=== PATIENT | female | born 1975 | race Caucasian/White ===

== ENCOUNTER → 2016-11-18 | Outpatient (CLI) | payer BC ==
[~2016-11-18] MED LIST: ACETCAP13 PO; CALC-51 PO; CHOL100010 PO; FOLATAB PO; GLUT500C PO; HYD10 PO; HYDR5TAB57 PO; HYDROCODONE HOMATROPINE PO; LEVO25TA PO; MAGNESIUM PO; MILK140C PO; MISCCAP80 PO; OREGCAP PO; POTA10TA32 PO; PYRI100T4 PO
[2016-11-18 11:32] LABS: THYROID STIMULATING HORMONE 2.81 uIu/ml (0.300-4.500)
--- NOTE | 2016-11-21 09:46 | CODING QUERY NO DIAGNOSIS ---
TREATMENT RENDERED WITHOUT A DIAGNOSIS To promote full compliance with coding requirements relating to patient care, physician participation is requested in all cases of greige mender uncertainty. Please assist us with providing a diagnosis/symptom for the test(s) below: A diagnosis/symptom was not documented on your Order. A valid diagnosis/symptom is required to bill all insurances. Please remember that we are unable to code a diagnosis of rule out, probable, possible, questionable, or suspected. Tests that require a diagnosis from 11/18/16:: * TSH DIAGNOSIS: * FREE T4 DIAGNOSIS: Provider Signature: Date: Thank you Dahiana Lynch [employer] Once completed, please kindly fax back to [phone] For questions please call [phone]
== END ==
LOC: C.LAB 09:33
PROVIDERS: ATTEND Family Medicine
DX: E03.9 Hypothyroidism, unspecified (principal)

== ENCOUNTER → 2016-11-25 | Outpatient (CLI) | payer BC | END | disposition home or self-care (01) | LOC: C.LAB 09:51 | PROVIDERS: ATTEND Psychiatry & Neurology Neurology | DX: R41.89 Other symptoms and signs involving cognitive functions and awareness (principal) ==

== ENCOUNTER → 2016-11-28 | Outpatient (CLI) | payer BC ==
[~2016-11-28] MED LIST changes: +GADAVIST IV PRN
--- NOTE | 2016-11-28 14:49 | DIAGNOSTIC IMAGING REPORT ---
MRI OF THE BRAIN WITHOUT AND WITH IV CONTRAST CLINICAL HISTORY: R41.89 Cognitive [id number] mental status change COMPARISON STUDY: No previous studies for comparison. TECHNIQUE: Utilizing a 1.5 Ambika magnet and dedicated coil, multiplanar, multiecho imaging of the brain was performed pre and postcontrast administration. IV administration of 4.5 mL of Gadavist contrast was uneventful. FINDINGS: Diffusion-weighted images are considered negative for an acute ischemic insult. Signal characteristics the cerebellar as well as cerebral hemispheres are unremarkable.. No evidence for abnormal postcontrast enhancement. IMPRESSION: Normal study. Electronically signed by: Hilario Valencia M.D. 11/28/2016 2:48 PM Dictated Date/Time: 11/28/2016 2:45 PM
== END | disposition home or self-care (01) ==
LOC: C.MRIBC 13:43
PROVIDERS: ATTEND Psychiatry & Neurology Neurology
DX: R41.89 Other symptoms and signs involving cognitive functions and awareness (principal)

== ENCOUNTER → 2016-12-27 | Outpatient (CLI) | payer BC ==
[~2016-12-27] MED LIST changes: -GADAVIST IV PRN
--- NOTE | 2016-12-27 09:54 | DIAGNOSTIC IMAGING REPORT ---
BILIARY ULTRASOUND CLINICAL HISTORY: GALLBLADDER POLYPS COMPARISON STUDY: 07/28/2016 FINDINGS: The pancreas appears sonographically normal. The liver appears sonographically normal. There is no ductal dilatation. There is no right-sided hydronephrosis. No gallstones are visualized. There are several tiny gallbladder polyps measuring up to 2 mm in diameter. These remain unchanged from the preceding study. There is no ductal dilatation. The common bile duct measures 2 mm. IMPRESSION: No change from the preceding study. Tiny gallbladder polyps. Otherwise normal study. Electronically signed by: Alejandro Merida M.D. 12/27/2016 9:52 AM Dictated Date/Time: 12/27/2016 9:50 AM
[2016-12-27 13:32] LABS: BASO % 0.3 %; BASO ABS # 0.01 K/uL (0-0.2); COMPLETE YES; EOS % 0.9 %; HEMATOCRIT 36.9 % (37-47); LYMPH % 34.8 %; MEAN CELL VOLUME 96.1 fL (80-100); MEAN CORPUSCULAR HEMOGLOBIN 31.8 pg (25-34); MEAN CORPUSCULAR HGB CONC 33.1 g/dl (32-36); MONO % 6.7 %; NEUT % 57.3 %; PLATELET COUNT 215 K/uL (130-400); RED BLOOD COUNT 3.84 M/uL (4.2-5.4); WHITE BLOOD COUNT 3.45 K/uL (4.8-10.8)
[2016-12-27 13:53] LABS: ESTIMATED AVERAGE GLUCOSE 108 mg/dl; HA1C FLAG Normal (Normal)
[2016-12-27 15:27] LABS: ALKALINE PHOSPHATASE 41 U/L (45-117); ALT/SGPT 87 U/L (12-78); AST/SGOT 38 U/L (15-37); BLOOD UREA NITROGEN 13 mg/dl (7-18); BUN/CREATININE RATIO 20.4 (10-20); CALCIUM 8.9 mg/dl (8.5-10.1); CARBON DIOXIDE 29 mmol/L (21-32); CHLORIDE 106 mmol/L (98-107); CHOLESTEROL 194 mg/dl (0-200); CREATININE 0.64 mg/dl (0.60-1.20); GLUCOSE 84 mg/dl (70-99); POTASSIUM 3.6 mmol/L (3.5-5.1); SODIUM 142 mmol/L (136-145)
[2016-12-27 15:32] LABS: ALB/GLOB RATIO 1.4 (0.9-2); CHOLESTEROL/HDL RATIO 2.4; HDL CHOLESTEROL 82 mg/dl; LDL CHOLESTEROL CALCULATED 101 mg/dl; PHOSPHORUS 3.7 mg/dl (2.5-4.9); TRIGLYCERIDES 56 mg/dl (0-150); URIC ACID 2.6 mg/dl (2.6-7.2); VERY LOW DENSITY LIPOPROT CALC 11 mg/dl
[2016-12-28 13:56] LABS: C-REACTIVE PROT HIGHSEN 0.2 MG/L
== END | disposition home or self-care (01) ==
LOC: C.ULTRBC 09:20
PROVIDERS: ATTEND Family Medicine
DX: R73.09 Other abnormal glucose (principal); E55.9 Vitamin D deficiency, unspecified; D51.9 Vitamin B12 deficiency anemia, unspecified; K82.4 Cholesterolosis of gallbladder

== ENCOUNTER → 2017-01-10 | Outpatient (CLI) | payer BC ==
--- NOTE | 2017-01-10 10:40 | DIAGNOSTIC IMAGING REPORT ---
EXAMINATION: PELVIC ULTRASOUND (transabdominal and endovaginal scanning) CLINICAL HISTORY: Pelvic pain and abnormal vaginal bleeding COMPARISON STUDY: 07/20/2010 FINDINGS: The uterus measured 6.8 x 4.7 x 3.4 cm. The endometrial stripe measured 5 mm. The right was nonvisualized The left ovary measured 50 x 39 x 36 mm. The left ovary contained a 37 mm cyst. This contains no mural nodules and no septations.. There is no ultrasonographic evidence of ovarian torsion. It should be noted that ovarian torsion can be present with normal Doppler ultrasonographic findings. There is a small amount of free fluid, likely physiologic. IMPRESSION: 1. 5 mm endometrial stripe 2. Nonvisualization the right ovary 3. 37 mm left ovarian cyst, likely functional. In a low risk patient, no follow-up is recommended. Electronically signed by: Alejandro Merida M.D. 01/10/2017 10:39 AM Dictated Date/Time: 01/10/2017 10:36 AM
== END | disposition home or self-care (01) ==
LOC: C.ULTRBC 09:51
PROVIDERS: ATTEND Family Medicine
DX: R10.2 Pelvic and perineal pain (principal)

== ENCOUNTER → 2017-01-31 | Outpatient (CLI) | payer BC ==
[2017-01-31 13:56] LABS: HEPATITIS B AB POS
[2017-01-31 14:34] LABS: ALKALINE PHOSPHATASE 39 U/L (45-117); ALT/SGPT 37 U/L (12-78); AST/SGOT 18 U/L (15-37); FERRITIN 29.5 ng/ml (8.0-388.0); TOTAL IRON BINDING CAPACITY 302 mcg/dl (250-450)
== END | disposition home or self-care (01) ==
LOC: C.LABBC 10:22
PROVIDERS: ATTEND Family Medicine
DX: R74.0 Nonspecific elevation of levels of transaminase and lactic acid dehydrogenase [LDH] (principal)

== ENCOUNTER → 2017-03-06 | Outpatient (CLI) | payer BC ==
[2017-03-06 14:22] LABS: BASO % 0.3 %; BASO ABS # 0.01 K/uL (0-0.2); COMPLETE YES; EOS % 0.9 %; HEMATOCRIT 36.3 % (37-47); LYMPH % 32.6 %; LYMPH ABS # 1.06 K/uL (1.2-3.4); MEAN CELL VOLUME 93.6 fL (80-100); MEAN CORPUSCULAR HGB CONC 34.2 g/dl (32-36); MEAN PLATELET VOLUME 10.1 fL (7.4-10.4); MONO % 9.5 %; NEUT % 56.7 %; PLATELET COUNT 234 K/uL (130-400); RED BLOOD COUNT 3.88 M/uL (4.2-5.4); WHITE BLOOD COUNT 3.25 K/uL (4.8-10.8)
[2017-03-06 15:30] LABS: CALCIUM 9.1 mg/dl (8.5-10.1)
[2017-03-06 15:35] LABS: ALT/SGPT 21 U/L (12-78); AST/SGOT 18 U/L (15-37); BLOOD UREA NITROGEN 12 mg/dl (7-18); BUN/CREATININE RATIO 14.9 (10-20); CARBON DIOXIDE 25 mmol/L (21-32); CHLORIDE 108 mmol/L (98-107); CREATININE 0.78 mg/dl (0.60-1.20); GLUCOSE 88 mg/dl (70-99); SODIUM 142 mmol/L (136-145)
[2017-03-06 15:45] LABS: ALB/GLOB RATIO 1.4 (0.9-2); ALKALINE PHOSPHATASE 44 U/L (45-117)
== END | disposition home or self-care (01) ==
LOC: C.LABBC 11:08
PROVIDERS: ATTEND Family Medicine
DX: E03.9 Hypothyroidism, unspecified (principal)

== ENCOUNTER → 2017-03-24 | Outpatient (CLI) | payer BC ==
[2017-03-24 11:32] LABS: PROLACTIN 6.07 ng/mL
== END | disposition home or self-care (01) ==
LOC: C.LAB 10:25
PROVIDERS: ATTEND Family Medicine
DX: E28.9 Ovarian dysfunction, unspecified (principal)